=== PATIENT | female | born 1990 | race Caucasian/White ===

== ENCOUNTER 2017-06-28 09:31 | Emergency (ER) | payer OTHER ==
[2017-06-28] MEDS ORDERED: NORMAL SALINE 1,000 ML IV ONE (09:59)
[2017-06-28] MEDS ORDERED: PROMETHAZINE HCL 25 MG/ML AMPUL IM ONE (09:59)
[2017-06-28] MEDS ORDERED: ONDANSETRON HCL/PF 2 MG/ML VIAL IV ONE (10:00)
[2017-06-28 10:15] LABS: Hematocrit 43.2 % (37.0-47.0); Hemoglobin 14.4 gm/dL (12.5-16.0); Mean Cell Volume 90.8 fl (78-100); Mean Corpuscular Hemoglobin 30.3 pg (27-31); Mean Corpuscular Hgb Conc 33.3 g/dl (32-36); Mean Platelet Volume 11.1 fl (6.0-9.5); Neutrophil # 5.9 K/mm3 (1.3-6.0); Neutrophil % 76.6 % (42-75.0); Platelet Count 236 K/mm3 (150-450); Red Blood Count 4.76 M/mm3 (4.2-5.4); Red Cell Distribution Width 13.4 % (11.5-14.0); White Blood Count 7.7 K/mm3 (4.0-10.5)
[2017-06-28 10:26] LABS: Albumin * 4.1 gm/dl (3.4-5.0); Anion Gap 17.5 mmol/L (6.8-13.8); BUN/Creatinine Ratio 12.4 (9.0-21.6); Bilirubin, Total 0.6 mg/dL (0.0-1.1); Ca. Corrected For Albumin 8.3 mg/dL (8.4-10.2); Calcium * 8.7 mg/dL (7.9-10.9); Potassium 3.5 mmol/L (3.4-4.6); Total Protein 8.5 gm/dL (6.2-8.2)
[2017-06-28 10:30] LABS: Cocaine Ur Negative (NEGATIVE); Urine Barbiturate Negative (NEGATIVE); Urine Opiates Negative (NEGATIVE); Urine PCP Negative (NEGATIVE); Urine THC Negative (NEGATIVE)
[2017-06-28 10:32] LABS: Urine Benzodiazepines Positive (NEGATIVE)
[2017-06-28 10:34] LABS: Urine Appearance Slightly Cloudy; Urine Color Dark Yellow
[2017-06-28 10:35] LABS: Urine Bilirubin 3 mg/dl (NEGATIVE); Urine Blood 150 /ul (NEGATIVE); Urine Ketone Large mg/dL (NEGATIVE); Urine Nitrite Negative (NEGATIVE); Urine Protein 15 mg/dL (NEGATIVE); Urine Urobilinogen Normal (NORMAL)
[2017-06-28 10:36] LABS: Urine Bacteria 1+; Urine RBC 0-5 /hpf (0-5)
[2017-06-28] MEDS ORDERED: ONDANSETRON HCL/PF 2 MG/ML VIAL ONE (10:41)
[2017-06-28] MEDS ORDERED: PROMETHAZINE HCL 25 MG/ML AMPUL ONE (10:41)
[2017-06-28] MEDS ORDERED: cefTRIAXone SODIUM 1,000 MG in DEXTROSE 5 % IN WATER 50 ML IV ONE ×2 (12:00)
[2017-06-28] MEDS ORDERED: SUCRALFATE 1 G/10 ML UDC PO ONE (13:10)
[2017-06-28] MEDS ORDERED: MAG HYDROX/ALUMINUM HYD/SIMETH 30 ML UDC PO ONE (13:10)
[2017-06-28] MEDS ORDERED: LIDOCAINE HCL 20 ML UDC PO ONE (13:10)
--- NOTE | 2017-06-28 13:28 | ERNOTE ---
Medical Problem HPI - Narrative Date of Service: 06/28/17 - General Chief Complaint: Nausea/Vomiting Time Seen by Provider: 06/28/17 09:54 Source: patient Exam Limitations: no limitations - Immun/Allergies/Home Medications Immunizations: IMMUNIZATION HX Immunizations Up to Date No History of Influenza Vaccine No Hx Pneumococcal Vaccination No Allergies/Adverse Reactions: Allergies Sulfa (Sulfonamide Antibiotics) Allergy (Mild, Verified 06/28/17 09:37) Hives Home Medications: HOME MEDICATIONS Cefuroxime Axetil [Ceftin Suspension] 250 mg PO BID 10 Days #100 btl 06/28/17 [ Last Taken Unknown] Lamotrigine [Lamictal] 100 mg PO DAILY 06/28/17 [Last Taken Unknown] Pantoprazole Sodium [Protonix] 40 mg PO DAILY #10 tab 06/28/17 [Last Taken Unknown] Prazosin HCl [Minipress] 5 mg PO HS 06/28/17 [Last Taken Unknown] Promethazine HCl 50 mg PO QID PRN 06/28/17 [Last Taken Unknown] Sertraline HCl [Zoloft] 100 mg PO DAILY 06/28/17 [Last Taken Unknown] Temazepam 15 mg PO HS 06/28/17 [Last Taken Unknown] - History of Present History Narrative: Patient presents for vomiting. She relates she has had cyclical vomiting for many years. She has been vomiting for 2 days. She gets upper abdominal pain with the vomiting. She vomited very hard and had some apparent streaked blood in the vomit. She has vomited multiple times since yesterday. No diarrhea, no recent blood in the stool, but has had blood in the stool several weeks ago. Moderate upper abdominal pain with the vomiting. No fever or dysuria. Normally Sx controlled with Pherergan but she has not taken that. She has been trying to get in to see a GI doctor for 6 months because of the occasional blood in her stool. Timing: intermittent Severity: moderate Modifying Factors - (Improves): Present: other - nothing Modifying Factors - (Worsens): Present: other - nothign Review of Systems - Review of Systems Constitutional: Absent: fever Respiratory: Absent: shortness of breath Cardiology: Absent: chest pain Gastrointestinal/Abdominal: Present: See HPI Genitourinary: Absent: dysuria Musculoskeletal: Absent: back pain Skin: Absent: rash Neurological: Absent: weakness - Patient's Past Medical History Patient History - Medical: Anxiety, Depression Patient History - Cardiac/Respiratory: No pertinent hx Patient History - Cancer: No Hx of Cancer Patient History - Surgical Procedures: Other Patient History - Other: None LMP (females 10-50): this week - Family History Mother Family History - Medical: No pertinent hx Family History - Cardiac/Respiratory: No pertinent hx Family History - Cancer: Other Father Family History - Medical: , Diabetes Type 2 Family History - Cardiac/Respiratory: No pertinent hx Family History - Cancer: No pertinent family hx - Social History Living Situations: spouse Abuse History: No History of abuse Psych History: Hx of Anxiety, Hx of Depression, Current tx/ever been on anti- depressants or anti-anxiety meds Smoking Status: Former smoker Have you smoked in the past 12 months: No Do you dip or chew tobacco: No Patient requests Smoking Cessation Consult: No Initiate information on Smoking Cessation: No Alcohol Use: rarely Drug Use: marijuana - Immunizations Immunizations Up to Date: No Hx Pneumococcal Vaccination: No History of Influenza Vaccine: No Physical Exam - Physical Exam General Appearance: Present: alert, no apparent distress Head Exam: Present: normal inspection, no evidence of injury Eye Exam: Normal inspection: bilateral, PERRL: bilateral Ears, Nose, Throat: Present: normal ENT inspection. Absent: dry mucous membranes Neck: Present: normal inspection Respiratory: Present: no respiratory distress, normal breath sounds, no accessory muscle use, lungs clear Cardiovascular/Chest: Present: regular rate, rhythm, normal peripheral pulses Gastrointestinal/Abdominal: Present: normal bowel sounds, nondistended, soft, other - Mild epigastric tendenress. NO peritoneal signs. No low abdominal tenderness. No guarding or rebound. No peritoneal signs. Non-surgical exam Back Exam: Absent: CVA tenderness (R), CVA tenderness (L) Extremity Exam: Present: normal inspection Neurological Exam: Present: alert, no motor/sensory deficits Skin Exam: Present: normal color, warm/dry ED Progress - Results and Orders Patient's Lab Results:: I have reviewed the patient's lab results. - Vital Signs Patient's Vital Signs:: I have reviewed the patient's vital signs. Vital Signs: Vital Signs 06/28/17 06/28/17 09:37 10:08 Temperature 36.7 C 36.7 C Pulse Rate 94 97 Respiratory 18 16 Rate Blood Pressure 131/91 134/85 O2 Sat by Pulse 98 97 Oximetry - Progress/Reassessment Chief Complaint: Nausea/Vomiting Progress Note-Subjective: 06/28/17 13:26 IV fluids given. Took orals, no further vomiting. Guaiac negative stool. Nothign to suggest acute GI bleeding, likely manuel maldonado phenomenon. No further vomiting. Mild UTI, will treat this. I do not feel x-ray or CT indicated given labs and exam. She is wishing to go home. I feel that is reasonable. I stressed that she needs to return immediately for any bleeding but not anemic and no suggestion of ongoing bleeding. I discussed warning signs and reasons to return as well as the need for close f/u. Medically stable at this time, Needs outpatient GI follow-up. Hx of same with cyclical vomiting. Departure Clinical Impression: Vomiting - Departure Disposition: Home self-care Condition: Stable Instructions: Nausea, Adult, [id number], Urinary Tract Infection, Adult, Easy -to-Read Additional Instructions: Rest. Fluids. Antibiotics as directed. Continue your vomiting medications. Call GI for an appointment as soon as possible. REturn here if you have ANY blood in your stool or vomit, develop fever, increased pain or if your condition worsens or changes in any way. Referrals: Blanca Morales FNP [Primary Care Provider] - Devendra New DO [Consulting Physician] - Jolene Dean MD [Staff Physician] - Prescriptions: Cefuroxime Axetil [Ceftin Suspension] 250 mg PO BID 10 Days #100 btl Pantoprazole Sodium [Protonix] 40 mg PO DAILY #10 tab
[2017-06-28 18:18] VITALS: BP 148/75
== END 2017-06-28 13:30 | disposition home or self-care (01) ==
LOC: ER 09:31
DX: R11.10 Vomiting, unspecified; Z87.891 Personal history of nicotine dependence; R10.10 Upper abdominal pain, unspecified; F32.9 Major depressive disorder, single episode, unspecified; F41.9 Anxiety disorder, unspecified
CPT/HCPCS: 36415; 80053; 80307; 81001; 82272; 83690; 84703; 85025; 87086; 96365; 96372; 96375; 99284; J2405